=== PATIENT | male | born 1990 | race Caucasian/White ===

== ENCOUNTER 2016-11-22 18:19 | Emergency (ER) | payer OTHER ==
[2016-11-22 18:24] VITALS: RESP 16; TEMP 98.6
--- NOTE | 2016-11-22 18:35 | CPEKG ---
Heart Rate: 80 RR Interval: 750 P-R Interval: 152 QRSD Interval: 118 QT Interval: 380 QTC Interval: 439 P Cecilia: 74 QRS Cecilia: 75 T Wave Cecilia: 34 EKG Severity - ABNORMAL ECG - EKG Impression: SINUS RHYTHM EKG Impression: NONSPECIFIC INTRAVENTRICULAR CONDUCTION DELAY Electronically Signed By: Dianelys Beaver 22-Nov-2016 19:49:05
--- NOTE | 2016-11-22 18:58 | EDPHY ---
H & P Stated Complaint: 1 week intermittent chest tightness HPI/ROS: CHIEF COMPLAINT: Chest pain. HISTORY OF PRESENT ILLNESS: The patient is a 26-year-old male presenting with acute chest pain that has been intermittent for the past few days. This pain is localized to the left upper chest. It is worse in the left axilla and shoulder. This pain comes intermittently and lasts for about 1-2 hours. His pain is unrelated to exertion or movement. It is not associated with shortness of breath. Today his chest pain started around 4:45 p.m. It is still present but has improved since arriving to the Emergency Department. The patient has a job that requires a lot of lifting. He states this does not provoke the pain. Occasionally his pain is improved after massaging his shoulder. He denies numbness in his upper extremities. No cough, fever, or recent sickness. REVIEW OF SYSTEMS: A ten point review of systems was performed and is negative with the exception of the items mentioned in the HPI. Source: Patient - Personal History Current Tetanus/Diphtheria Vaccine: Yes Tetanus Vaccine Date: < 10 YEARS - Medical/Surgical History Hx Asthma: No Hx Chronic Respiratory Disease: No Hx Diabetes: No Hx Cardiac Disease: No Hx Renal Disease: No Hx Cirrhosis: No Hx Alcoholism: No Hx HIV/AIDS: No Hx Splenectomy or Spleen Trauma: No Other PMH: denies - Social History Smoking Status: Current every day smoker Additional Social History: Works in [employer] for a [employer]. Smokes E cigarettes 3-4 per day. Alcohol consumption every other day alcohol No drug use. - Physical Exam Exam: General Appearance: Alert. Vital signs reviewed. Blood pressure 157/96. Eyes: Pupils equal and round, no conjunctival injection, no discharge. Anicteric. ENT, Mouth: Mucous membranes are moist, no oropharyngeal erythema or edema. Neck: No lymphadenopathy, supple. Respiratory: Lungs are clear to auscultation; no wheezes, rales, or rhonchi. Cardiovascular: Regular rate and rhythm; no murmur, rub, or gallop. Gastrointestinal: Abdomen is soft and nontender, no masses or organomegaly, bowel sounds normal. Skin: Warm and dry, no rashes on exposed skin, normal color. Back: Nontender to palpation over the thoracolumbar spine. No CVAT. Extremities: No lower extremity edema, no calf tenderness or swelling. Neurological: Alert and oriented. Moving all four extremities easily and equally. Psychiatric: Normal affect. Constitutional: Initial Vital Signs Temperature (C) 37 C 11/22/16 18:22 Heart Rate 93 11/22/16 18:22 Respiratory Rate 16 11/22/16 18:22 Blood Pressure 157/96 H 11/22/16 18:22 O2 Sat (%) 96 11/22/16 18:22 O2 Delivery Mode Room Air Allergies/Adverse Reactions: Penicillins Allergy (Verified 11/22/16 18:21) Home Medications: Medication Instructions Recorded NK [No Known Home Meds] 11/22/16 Medical Decision Making - Diagnostics Imaging Results: Chest xray viewed by me in PACS. [facility] Imaging: I viewed and interpreted images myself ED Course/Re-evaluation: The patient is a healthy young male who presents with intermittent chest pain for the past few days. This pain is left sided and lasts for 1-2 hours. 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 He states physical activity does not cause the chest pain. He occasionally finds some relief when massaging his left shoulder. The patient has no associated shortness of breath, nausea, or upper extremity numbness. The patient received 324mg Aspiring PO. Plan for cardiac workup including labs, troponin, chest x-ray, and EKG. Labs are normal, Troponin is normal. An x-ray of chest was obtained. I viewed the images myself on the PACS system. Negative. 8:25 p.m.: I discussed findings with the patient. He is resting comfortably, chest pain has subsided. His HEART score is zero, giving him less than 1.7% chance of a major cardiac event within the next six weeks, based upon HEART study. I do not think that his pain is anginal and do not recommend hospitalization for further evaluation. No signs of pneumonia or pneumothorax on CXR. I do not suspect PE as he has no risk factors and the pain is not pleuritic, plus there are no signs of PE (hypoxia, tachycardia, tachypnea). I recommend symptomatic treatment with OTC pain medicine prn and watching and waiting to see if this evolves or resolves. I think that this pain is musculoskeletal. BP high on arrival, improved at DC . - Data Points Laboratory Results: Laboratory Results 11/22/16 18:50 11/22/16 18:50 Medications Given: Discontinued Medications Aspirin (Aspirin) 324 mg PO EDNOW ONE Stop: 11/22/16 19:19 Last Admin: 11/22/16 19:37 Dose: 324 mg Departure - Departure Disposition: Home, Routine, Self-Care Clinical Impression: Musculoskeletal chest pain Condition: Good Instructions: Chest Pain (ED) Additional Instructions: 1. 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 Please call tomorrow to arrange a followup appointment. I suggest seeing the physician if you continue to have pain. 2. Return to the Emergency Department with new or worsening symptoms such as severe pain, shortness of breath, nausea, or arm pain. Referrals: Hubert Contreras MD [Medical Doctor] - As per Instructions Report Scribed for: Dianelys Beaver Report Scribed by: Guerda Becker Date of Report: 11/22/16 Time of Report: 19:21 Physician Review and Approval Statement: 11/22/16 18:58 Portions of this note were transcribed by the medical corps officer. I, Dr. Dianelys Beaver, personally performed the history, physical exam, and medical decision- making; and confirmed the accuracy of the information in the transcribed note.
[2016-11-22 19:23] LABS: % IMMATURE GRANULYOCYTES 0.5 % (0.0-1.1); ABSOLUTE IMMATURE GRANULOCYTES 0.05 10^3/uL (0.00-0.10); ADD DIFF? NO; ADD MORPH? NO; ADD SCAN? NO; ATYPICAL LYMPHOCYTE FLAG 0 (0-99); FRAGMENT RBC FLAG 0 (0-99); HEMATOCRIT 45.2 % (40.0-51.0); HEMOGLOBIN 15.9 g/dL (13.7-17.5); LEFT SHIFT FLG 0 (0-99); LIPEMIA HEMOLYSIS FLAG 90 (0-99); MEAN CELL HEMOGLOBIN CONCENTR. 35.2 g/dL (32.4-36.7); MEAN CELL VOLUME 90.9 fL (81.5-99.8); MEAN PLATELET VOLUME 8.8 fL (8.7-11.7); PLATELET CLUMPS FLAG 0 (0-99); PLATELET COUNT 224 10^3/uL (150-400); RED BLOOD CELL COUNT 4.97 10^6/uL (4.40-6.38); RED CELL DISTRIBUTION WIDTH 12.3 % (11.5-15.2)
[2016-11-22 19:28] LABS: ANION GAP 11 mEq/L (8-16); CALCIUM 9.7 mg/dL (8.5-10.4); CARBON DIOXIDE 28 mEq/l (22-31); CHLORIDE 101 mEq/L (97-110); GLOMERULAR FILTRATION RATE > 60; GLUCOSE 80 mg/dL (70-100); POTASSIUM 3.9 mEq/L (3.5-5.2); SODIUM 140 mEq/L (134-144)
[2016-11-22] MEDS: ASPIRIN 81 MG CHEWABLE TAB PO ONE (19:37)
[2016-11-22 19:40] LABS: TROPONIN I < 0.012 ng/mL (0-0.034)
[2016-11-22 20:38] VITALS: BP 125/79; PULSE 59; O2SAT 95
== END 2016-11-22 20:38 | disposition home or self-care (01) ==
DX: R07.89 Other chest pain (principal); F17.200 Nicotine dependence, unspecified, uncomplicated